=== PATIENT | female | born 1945 | race Caucasian/White ===

== ENCOUNTER → 2016-11-05 | Outpatient (CLI) | payer OTHER ==
[~2016-11-05] MED LIST: ACET-1138 PO; ASPEC325 PO; CALC-354 PO; CHOL1000 PO; DOCU-94 PO; FRRG PO; LEVO75TA PO; MAGN400T6 PO; MULT1CAP6 PO; MULTCAP7 PO; POLY335019 PO; SPIR25TA PO; TRAM-10 PO; ULT50X PO; ZNTT/150 PO
== END | disposition home or self-care (01) ==
LOC: C.PAPS 17:22
PROVIDERS: ATTEND Obstetrics & Gynecology
DX: Z12.4 Encounter for screening for malignant neoplasm of cervix (principal)

== ENCOUNTER → 2016-11-30 | Outpatient (CLI) | payer OTHER ==
[2016-11-30 10:52] LABS: THYROID STIMULATING HORMONE 2.08 uIu/ml (0.300-4.500)
== END | disposition home or self-care (01) ==
LOC: C.LAB1850 09:32
PROVIDERS: ATTEND Internal Medicine Endocrinology, Diabetes & Metabolism
DX: E03.9 Hypothyroidism, unspecified (principal)

== ENCOUNTER → 2017-03-15 | Outpatient (CLI) | payer OTHER ==
[2017-03-15 09:53] LABS: ESTIMATED AVERAGE GLUCOSE 114 mg/dl; HA1C FLAG Normal (Normal)
[2017-03-15 10:09] LABS: ALT/SGPT 30 U/L (12-78); BLOOD UREA NITROGEN 23 mg/dl (7-18); BUN/CREATININE RATIO 21.1 (10-20); CARBON DIOXIDE 29 mmol/L (21-32); CHLORIDE 105 mmol/L (98-107); CHOLESTEROL 186 mg/dl (0-200); GLUCOSE 89 mg/dl (70-99); POTASSIUM 3.7 mmol/L (3.5-5.1); SODIUM 142 mmol/L (136-145); TRIGLYCERIDES 67 mg/dl (0-150); VERY LOW DENSITY LIPOPROT CALC 13 mg/dl
[2017-03-15 10:11] LABS: CALCIUM 9.6 mg/dl (8.5-10.1)
[2017-03-15 10:12] LABS: ALB/GLOB RATIO 1.1 (0.9-2); ALKALINE PHOSPHATASE 64 U/L (45-117); AST/SGOT 16 U/L (15-37); CHOLESTEROL/HDL RATIO 3.1; HDL CHOLESTEROL 60 mg/dl; LDL CHOLESTEROL CALCULATED 113 mg/dl
--- NOTE | 2017-03-21 08:37 | CODING QUERY MEDICAL NECESSITY ---
SUPPORTING DIAGNOSIS NEEDED Dr. Castillo, A supporting diagnosis is required for the test/procedure performed on this patient in order for us to be reimbursed by the patient's insurance. Please provide a supporting diagnosis for the following test/procedure listed below next to the test name along with your signature. *If there is no additional diagnosis for this patient that would support the following test/procedure please document that below next to the test/procedure. Test(s)/Procedure(s) that require a supporting diagnosis: * [id number] GLYCATED HEMOGLOBIN DIAGNOSIS: DATE OF SERVICE: 03/15/17 Provider Signature: Date: Thank you Beto Mason [facility] [place] Information Management Once completed, please kindly fax back to [phone] For questions please call [phone]
== END | disposition home or self-care (01) ==
LOC: C.LAB1850 08:05
PROVIDERS: ATTEND Internal Medicine
DX: E03.9 Hypothyroidism, unspecified (principal); R73.9 Hyperglycemia, unspecified

== ENCOUNTER → 2017-07-08 | Outpatient (CLI) | payer OTHER ==
--- NOTE | 2017-07-08 15:50 | MAMMOGRAPHY REPORT ---
BILATERAL DIGITAL SCREENING MAMMOGRAM WITH CAD: 07/08/2017 CLINICAL HISTORY: Routine screening. Patient has no complaints. TECHNIQUE: Bilateral CC and MLO views were obtained. Current study was also evaluated with a Compute r Aided Detection (CAD) system. COMPARISON: Comparison is made to exams dated: 07/06/2016 mammogram, 06/06/2015 mammogram, 06/17/2014 ma mmogram, 05/31/2014 mammogram, 05/24/2014 mammogram, and 05/18/2013 mammogram - [facility] BREAST COMPOSITION: There are scattered areas of fibroglandular density in both breasts. FINDINGS: There are stable biopsy marker clips in the left breast. Stable groupings of punctate ana rocalcifications in the left breast, and scattered benign-appearing microcalcifications bilaterally. No new suspicious mass, architectural distortion or cluster of microcalcifications is seen. IMPRESSION: ACR BI-RADS CATEGORY 1: NEGATIVE There is no mammographic evidence of malignancy. A 1 year screening mammogram is recommended. The pa tient will receive written notification of the results. Approximately 10% of breast cancers are not detected with mammography. A negative mammographic report should not delay biopsy if a clinically suggestive mass is present. Hilaria Jeong M.D. ay/:07/08/2017 15:03:33 Administrative Services Director: Ghada SCHMIDT)(M), [facility] letter sent: Normal 1/2 BI-RADS Code: ACR BI-RADS Category 1: Negative
== END | disposition home or self-care (01) ==
LOC: C.MAMM 12:23
PROVIDERS: ATTEND Internal Medicine
DX: Z12.31 Encounter for screening mammogram for malignant neoplasm of breast (principal)

== ENCOUNTER 2017-07-13 09:25 | Emergency (ER) | payer OTHER ==
[~2017-07-13] VITALS: Ht 152.4 cm; Wt 66.7 kg
[~2017-07-13 09:25] MED LIST changes: -CALC-354 PO; -MULTCAP7 PO; -TRAM-10 PO
[2017-07-13 09:26] VITALS: TEMP 36.9; Ht 152.4 cm; Wt 66.7 kg
--- NOTE | 2017-07-13 09:47 | EMERGENCY ROOM VISIT NOTE ---
ED Visit Note First contact with patient: 09:39 I have seen and examined this patient with Jomar Boston and generally agree with the treatment plan as discussed. Problem List Medical Problems: (1) Hypertension Status: Chronic (2) Hypothyroidism Status: Chronic Surgical Problems: (1) Previous section Status: Resolved Current/Historical Medications Scheduled Acetaminophen (Tylenol Extra Strength), 1,000 MG PO Q8H Aspirin (Aspirin), 325 MG PO BID Cholecalciferol (Vitamin D3), 1 TAB PO QAM Docusate Sodium (Colace), 1 CAP PO BID Ferrous Gluconate (Ferrous Gluconate), 324 MG PO BIDM Levothyroxine Sodium (Synthroid), 50 MCG PO QAM Magnesium Oxide (Mag-Ox), 400 MG PO QPM Multiple Vitamins W/ Minerals (Multi For Her), 1 TAB PO QAM Polyethylene Glycol 3350 (Miralax), 17 GM PO prn Ranitidine (Zantac), 150 MG PO BID Spironolactone (Aldactone), 37.5 MG PO BID Scheduled PRN Tramadol HCl (Tramadol HCl), 50-100 MG PO Q4H PRN for Pain Allergies Coded Allergies: Bupropion (Verified Adverse Reaction, Mild, NIGHTMARES/TINNITUS, 05/29/16) Vital Signs Date Time Temp Pulse Resp B/P (MAP) Pulse Ox O2 Delivery O2 Flow Rate FiO2 07/13/17 09:26 36.9 124 16 148/81 96 Room Air Departure Information Referrals Kaden Castillo M.D. (PCP) Patient Instructions My [facility]
[2017-07-13] MEDS ORDERED: CALC-354 PO (10:08)
[2017-07-13] MEDS ORDERED: MULTCAP7 PO (10:12)
--- NOTE | 2017-07-13 10:36 | DIAGNOSTIC IMAGING REPORT ---
R VENOUS DOPP LOWER EXT UNILAT CLINICAL HISTORY: 71 years-old Female presenting with Right leg pain. TECHNIQUE: Real-time grayscale and color and spectral Doppler ultrasound imaging of the veins of the right lower extremity was performed. Compression and augmentation were also utilized. COMPARISON: None. FINDINGS: Right: Common femoral vein: Patent. Femoral vein: Patent. Greater saphenous vein: Patent. Popliteal vein: Patent. Calf veins: Patent. Other: None. IMPRESSION: No evidence of deep venous thrombosis. Electronically signed by: Kaden Kang M.D. 07/13/2017 10:34 AM Dictated Date/Time: 07/13/2017 10:33 AM
--- NOTE | 2017-07-13 11:17 | DIAGNOSTIC IMAGING REPORT ---
R PELVIS/UNILATERAL HIP 2-3VIEWS CLINICAL HISTORY: 71 years-old Female presenting with Right hip and thigh pain. TECHNIQUE: Single frontal view of the pelvis and frontal and frog-leg lateral views of the right hip were obtained. COMPARISON: . FINDINGS: Postsurgical changes of total right hip arthroplasty. No hardware complication. No acute fracture or subluxation. Persistent calcification projecting over the pelvis likely indicates calcified fibroids. IMPRESSION: Right total hip arthroplasty. No hardware convocation or acute osseous injury. Electronically signed by: Kaden Kang M.D. 07/13/2017 11:15 AM Dictated Date/Time: 07/13/2017 11:13 AM
[2017-07-13] MEDS ORDERED: TRAM-10 PO (11:26)
--- NOTE | 2017-07-13 11:28 | EMERGENCY ROOM VISIT NOTE ---
History First contact with patient: 09:39 Chief Complaint: HIP PAIN Stated Complaint: HIP/GROIN PAIN History of Present Illness The patient is a 71 year old female who presents to the Emergency Room via private vehicle accompanied by male with complaints of "hip/groin pain". The patient states that she had hip surgery, specifically a right hip replacement performed here in the past. She's been doing well, however she was lifting a heavy object in April of this year up a set of steps, when she developed pain in the right thigh. She notes this has been progressing, however this Saturday acutely worsened as she was trying to exit a car. She notes that she went to swing her right leg to meet her left leg and heard a pop in the left hip. Since that time she has had pain at rest, but is better with movement and standing. She rates the pain as a 2/10. She notes he has not slept well the past 2 nights secondary to the pain. Review of Systems A complete 10-point Review of Systems was discussed with the patient, with pertinent positives and negatives listed in the History of Present Illness. All remaining Review of Systems questions can be considered negative unless otherwise specified. Past Medical/Surgical History Medical Problems: (1) Hypertension (2) Hypothyroidism (3) Right Hip DJD Surgical Problems: (1) Previous section Family History Cancer Diabetes mellitus Heart disease Hypertension Kidney disease Kidney stones Social History Smoking Status: Never Smoker Alcohol Use: occasionally Marital Status: single Housing Status: lives with family Occupation Status: employed Current/Historical Medications Scheduled Acetaminophen (Tylenol Extra Strength), 1,000 MG PO Q8H Calcium Carbonate-Cholecalcife (Caltrate 600+D), 1 TAB PO QPM Docusate Sodium (Colace), 1 CAP PO BID Levothyroxine Sodium (Synthroid), 50 MCG PO QAM Magnesium Oxide (Mag-Ox), 400 MG PO QPM Multiple Vitamins W/ Minerals (Eye Vitamins), 1 CAP PO DAILY Polyethylene Glycol 3350 (Miralax), 17 GM PO prn Ranitidine (Zantac), 150 MG PO BID Spironolactone (Aldactone), 37.5 MG PO BID Scheduled PRN Tramadol (Ultram), 1 TAB PO Q6 PRN for Pain Physical Exam Vital Signs Date Time Temp Pulse Resp B/P (MAP) Pulse Ox O2 Delivery O2 Flow Rate FiO2 07/13/17 11:45 72 18 118/65 99 07/13/17 10:43 78 18 118/65 98 Room Air 07/13/17 09:26 36.9 124 16 148/81 96 Room Air Physical Exam VITAL SIGNS - Vital signs and nursing notes were reviewed. Stable. GENERAL - 71-year-old female appearing her stated age who is in no acute distress. Communicates well with provider and answers questions appropriately. SKIN - Without rashes. Unremarkable. HEAD - NC/AT. EXTREMITIES - No clubbing or peripheral cyanosis. No pretibial edema present. There is tenderness to palpation overlying the patient's posterior gluteal region, and medial thigh proximally. No bony tenderness. +5/5 strength noted in UE/LE bilaterally. She is neurovascularly intact in this region. Medical Decision & Procedures ER Provider Diagnostic Interpretation: [~ rep ct add3]] R PELVIS/UNILATERAL HIP 2-3VIEWS CLINICAL HISTORY: 71 years-old Female presenting with Right hip and thigh pain. TECHNIQUE: Single frontal view of the pelvis and frontal and frog-leg lateral views of the right hip were obtained. COMPARISON: . FINDINGS: Postsurgical changes of total right hip arthroplasty. No hardware complication. No acute fracture or subluxation. Persistent calcification projecting over the pelvis likely indicates calcified fibroids. IMPRESSION: Right total hip arthroplasty. No hardware convocation or acute osseous injury. Electronically signed by: Kaden Kang M.D. 07/13/2017 11:15 AM Dictated Date/Time: 07/13/2017 11:13 AM R VENOUS DOPP LOWER EXT UNILAT CLINICAL HISTORY: 71 years-old Female presenting with Right leg pain. TECHNIQUE: Real-time grayscale and color and spectral Doppler ultrasound imaging of the veins of the right lower extremity was performed. Compression and augmentation were also utilized. COMPARISON: None. FINDINGS: Right: Common femoral vein: Patent. Femoral vein: Patent. Greater saphenous vein: Patent. Popliteal vein: Patent. Calf veins: Patent. Other: None. IMPRESSION: No evidence of deep venous thrombosis. Electronically signed by: Kaden Kang M.D. 07/13/2017 10:34 AM Dictated Date/Time: 07/13/2017 10:33 AM Medical Decision Patient was seen and evaluated as above. She presents to us today with right thigh pain. I suspect this is likely musculoskeletal in etiology. X-ray was obtained of the right hip ultrasound to rule out DVT. These were both negative for acute process. She will be given a short course of tramadol for pain, and is to follow-up with Dr. Gurrola. This was performed her surgery. I did list the help of our child welfare caseworker who are going to help establish an appointment with the patient early in the coming week. She appears stable for outpatient management. No evidence of infection, clot or fracture. She was educated upon management. She was educated upon worrisome symptoms in which to return, had questions answered prior to discharge, and was discharged home in good condition. In the evaluation and treatment of this patient, the following differential diagnoses were considered: Hip Fracture, Hip Dislocation, Greater Trochanteric Bursitis, Musculoskeletal Pain, Lumbar Radiculopathy. [facility] Drug Monitoring Program Search Results: patient reviewed within database, no issues identified Medication Reconcilliation Current Medication List: was personally reviewed by me Blood Pressure Screening Patient's blood pressure: Elevated blood pressure Blood pressure disposition: Elevated BP felt to be situational Impression Primary Impression: Hip pain Additional Impression: Pain in right thigh Departure Information Dispostion Home / Self-Care Condition GOOD Prescriptions Tramadol (Ultram) 50 Mg Tab 1 TAB PO Q6 Y for Pain, #12 TAB Prov: Jomar Boston PA-C 07/13/17 Referrals Kaden Castillo M.D. (PCP) Marshal Gurrola M.D. Patient Instructions My [facility] Additional Instructions You have been treated in the Emergency Department for Hip Pain. You have received pain medicine in the emergency department which impairs your ability to operate a vehicle. It is illegal for you to drive after receiving these medicines. You have been prescribed TRAMADOL to be used for pain control. This is a narcotic medication. You cannot drive or consume alcohol while on this medicine. This medicine should only be used for pain that cannot be controlled with [id number] pain medicines. For pain control, you can use the following qihh-mog-ldhjtck medicines (if >12 yo): - Regular strength (325mg/tab) Tylenol (acetaminophen) 2 tabs every 4-6 hours as needed. Do not exceed 12 tablets in a 24 hour period. Avoid taking more than 3 grams (3000 mg) of Tylenol per day. This includes any other sources of acetaminophen you may take on a regular basis. If this is a recent injury (<24 hrs), ice can be applied to the area of pain for the first 3 days to help decrease pain and inflammation. Ice massages can be performed by freezing water in a paper cup, peeling back the cup to expose the ice and then massaging over the affected area. You have been provided the number for an Orthopaedic Surgeon. You should call this number as soon as possible to establish a follow-up visit from today's Emergency Department visit. Be cautious with your hip movements until your pain is tolerable. Use the crutches you have been provided to keep ALL weight off of the hip until weight bearing is tolerable. Return to the Emergency Department if your current symptoms worsen despite treatment course outlined above. Problem Qualifiers Primary Impression: Hip pain Laterality: right Qualified Codes: M25.551 - Pain in right hip
[2017-07-13 11:45] VITALS: BP 118/65; PULSE 72; O2SAT 99
== END 2017-07-13 11:46 | disposition home or self-care (01) ==
LOC: C.EDB 09:26 → C.EDA 11:46
DX: M25.551 Pain in right hip (principal); M79.651 Pain in right thigh; Z96.641 Presence of right artificial hip joint; I10 Essential (primary) hypertension; E03.9 Hypothyroidism, unspecified; M16.11 Unilateral primary osteoarthritis, right hip; Z80.9 Family history of malignant neoplasm, unspecified; Z83.3 Family history of diabetes mellitus; Z82.49 Family history of ischemic heart disease and other diseases of the circulatory system; Z84.1 Family history of disorders of kidney and ureter; Z79.899 Other long term (current) drug therapy